=== PATIENT | female | born 1940 | race Two or more races ===

== ENCOUNTER → 2017-02-28 | Outpatient (REF) | payer MEDICARE, BC, MEDICAID ==
[~2017-02-28] MED LIST: ASPI81TA21 PO; ASPI81TA45 PO; CALC1CAP31 PO; CARV25TA PO; CINA30TA PO; CIPR500T89 PO; COLA100C3 PO; CORE25TA PO; DIOV320T PO; DORZ2OPD IO; FERR220E2 PO; FERR325T PO; HYDR100T PO; LANT50TA PO; LATA5OPD OU; NIFE20CA PO; NIFE60TA61 PO; OMEP40CA2 PO; PROC60TA PO; RENATAB5 PO; SENS60TA PO; SIMV40TA2 PO; SYNT112T2 PO; SYNT25TA PO; TYLE325T5 PO; VALS160T PO; VITA50003 PO; ZOCO40TA PO; [UNRECOGNIZED DRUG - CODE] SC; [UNRECOGNIZED DRUG - OTHER] OU; aranesp SC
== END ==
LOC: M LAB REF 09:11
PROVIDERS: ATTEND Internal Medicine Nephrology
DX: N39.0 Urinary tract infection, site not specified (principal)

== ENCOUNTER → 2017-06-12 | Outpatient (CLI) | payer MEDICARE, BC, MEDICAID ==
[~2017-06-12] MED LIST changes: +CIPR-249 PO; -CIPR500T89 PO; -COLA100C3 PO; +COLA100C5 PO; +FERR1TAB8 PO; -FERR325T PO; +VITA1CAP40 PO; -VITA50003 PO
--- NOTE | 2017-06-13 00:31 | REP ---
Left clavicle two views: The acromioclavicular joint is unremarkable. There is no clavicle fracture. 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 Signed by Hussein Salter MD 06/12/2017 03:56 P
== END ==
LOC: M SMT 15:15
PROVIDERS: ATTEND Internal Medicine Nephrology
DX: N18.6 End stage renal disease (principal); M75.82 Other shoulder lesions, left shoulder